=== PATIENT | female | born 2005 | race Caucasian/White ===

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

== ENCOUNTER 2023-08-22 18:44 | Emergency (ER) | payer BC, MEDICAID ==
[2023-08-22] MEDS: traMADol 50 MG Tab PO ONE (20:50)
== END 2023-08-22 21:23 | disposition home or self-care (01) ==
LOC: JP.ED 18:44
DX: M77.8 Other enthesopathies, not elsewhere classified (principal)
CPT/HCPCS: 73110; 73140; 99283; A9270